=== PATIENT | male | born 1985 | race Two or more races ===

== ENCOUNTER 2024-05-09 00:05 | Inpatient (IN) | payer MEDICAID ==
[~2024-05-09] VITALS: Ht 154.9 cm; Wt 70.4 kg
[2024-05-09] MEDS: LORazepam 2 MG/ML VIAL IM ONE (00:51)
[2024-05-09] MEDS: DiphenhydrAMINE HCL 50 MG/ML VIAL IM ONE (00:51)
[2024-05-09] MEDS: HALOPERIDOL LACTATE 5 MG/ML VIAL IM ONE (00:53)
[2024-05-09 01:15] LABS: BASOPHILS % (AUTO) 0.6 % (0.0-2.0); EOSINOPHILS % (AUTO) 0.4 % (1.0-6.0); HEMATOCRIT 46.7 % (41-53); LYMPHOCYTES % (AUTO) 9.5 % (22.0-44.0); MEAN CORPUSCULAR HEMOGLOBIN 30.2 pg (26.0-34.0); MEAN CORPUSCULAR HGB CONC 34.2 G/dL (31.0-37.0); MEAN CORPUSCULAR VOLUME 88 fL (80-100); MONOCYTES # (AUTO) 0.6 K/uL (0.1-1.0); MONOCYTES % (AUTO) 6.1 % (2.0-9.0); NEUTROPHILS # (AUTO) 8.6 K/uL (1.8-7.7); NEUTROPHILS % (AUTO) 83.4 % (40.0-70.0); PLATELET COUNT (AUTO) 292 K/uL (150-450); RED BLOOD CELL COUNT(AUTO) 5.29 MIL/uL (4.50-5.90); WHITE BLOOD COUNT (AUTO) 10.4 K/uL (4.5-11.0)
[2024-05-09 01:27] LABS: COVID AG,FIA SOURCE NASAL SWAB
[2024-05-09 01:38] LABS: ANION GAP 9 mmol/L (8-16); CALCIUM, TOTAL 9.3 mg/dL (8.8-10.5); CARBON DIOXIDE 26 mmol/L (22-29); CHLORIDE 106 mmol/L (98-107); CREATININE 0.84 mg/dL (0.60-1.30); GLOMERULAR FILTR. RATE CALC > 60 mL/min (>60); GLUCOSE,RANDOM 164 mg/dL (70-110); POTASSIUM 3.4 mmol/L (3.5-5.1); SODIUM SERUM 141 mmol/L (136-145); UREA NITROGEN, BLOOD 17 mg/dL (7-18)
[2024-05-09 01:42] LABS: ALCOHOL, BLOOD (SERUM) < 3 mg/dL (0-10)
[2024-05-09 01:53] LABS: SARS-COV2 (COVID) ANTIGEN,FIA Negative (Negative)
[2024-05-09] MEDS: POTASSIUM CHLORIDE 20 MEQ ER TABLET PO ONE (09:51)
[2024-05-09 10:22] LABS: PH,URINE DRUG SCREEN 5.5 (5.0-8.0)
[2024-05-09 10:30] LABS: ALCOHOL, URINE DRUG SCREEN NEGATIVE (NEGATIVE); AMPHET/METH SCREEN,URINE NEGATIVE (NEGATIVE); BARBITURATE SCREEN, URINE NEGATIVE (NEGATIVE); BENZODIAZEPINES SCREEN,URINE NEGATIVE (NEGATIVE); CANNABINOID SCREEN,URINE NEGATIVE (NEGATIVE); COCAINE SCREEN,URINE NEGATIVE (NEGATIVE); METHADONE SCREEN, URINE NEGATIVE (NEGATIVE); OPIATE SCREEN,URINE NEGATIVE (NEGATIVE); PHENCYCLIDINE SCREEN,URINE NEGATIVE (NEGATIVE)
[2024-05-09] MEDS ORDERED: LORazepam 2 MG TABLET PO PRN (11:15)
[2024-05-09] MEDS ORDERED: PROMETHAZINE HCL 25 MG TABLET PO PRN (11:15)
[2024-05-09] MEDS ORDERED: GuaiFENesin/D-METHORPHAN [SUGAR-FREE] 200-20MG/10 ML SYRUP UDCUP PO PRN (11:15)
[2024-05-09] MEDS ORDERED: LOPERAMIDE HCL 2 MG CAPSULE PO PRN (11:15)
[2024-05-09] MEDS ORDERED: TUBERCULIN, PURIFIED PROTEIN DERIVATIVE 5 TU/0.1 ML SYRINGE ID ONE (11:15)
[2024-05-09] MEDS ORDERED: MAGNESIUM HYDROXIDE SUSPENSION 30 ML UDCUP PO PRN (11:15)
[2024-05-09] MEDS ORDERED: ZOLPIDEM TARTRATE 10 MG TABLET PO PRN (11:15)
[2024-05-09] MEDS ORDERED: QUEtiapine FUMARATE 100 MG TABLET PO PRN (11:15)
[2024-05-09] MEDS ORDERED: MAG HYDROX/ALUMINUM HYD/SIMETH ES 30 ML SUSPENSION UDCUP PO PRN (11:15)
[2024-05-09] MEDS ORDERED: ACETAMINOPHEN 325 MG TABLET PO PRN (11:15)
[2024-05-09 15:23] VITALS: BP 130/80; PULSE 98; RESP 16; TEMP 97.5; O2SAT 98
[2024-05-09] MEDS ORDERED: THIAMINE 100 MG TABLET PO SCH (17:00)
[2024-05-09] MEDS ORDERED: INFLUENZA VIRUS VACCINE TVS (6MO+) 2024-25/PF 45 MCG/0.5 ML SYRINGE IM. ONE (17:00)
[2024-05-09 20:51] VITALS: RESP 18; TEMP 97.7
[2024-05-09] MEDS ORDERED: MIRTAZAPINE 15 MG TABLET PO SCH (21:00)
[2024-05-09] MEDS ORDERED: MELATONIN 5 MG TABLET PO SCH (21:00)
[2024-05-09] MEDS: MELATONIN 5 MG TABLET PO SCH (21:04)
[2024-05-09] MEDS: MIRTAZAPINE 15 MG TABLET PO SCH (21:04)
[2024-05-10] MEDS: FOLIC ACID 1 MG TABLET PO SCH (08:32)
[2024-05-10] MEDS: THIAMINE 100 MG TABLET PO SCH (08:33)
[2024-05-10] MEDS: MULTIVITAMINS WITH MINERALS, THERAPEUTIC TABLET PO SCH (08:33)
[2024-05-10 08:59] VITALS: BP 119/66; PULSE 88; RESP 18; TEMP 97.9; O2SAT 98
[2024-05-10] MEDS ORDERED: TUBERCULIN, PURIFIED PROTEIN DERIVATIVE 5 TU/0.1 ML SYRINGE ID ONE ×2 (09:00)
[2024-05-10] MEDS ORDERED: FOLIC ACID 1 MG TABLET PO SCH (09:00)
[2024-05-10 10:20] LABS: CHOL/HDL RATIO 3.4 (4.2-7.3); FREE T4 (FREE THYROXINE) 1.29 ng/dL (0.76-1.46); POTASSIUM 3.5 mmol/L (3.5-5.1)
[2024-05-10 10:23] LABS: HEMOGLOBIN A1C 5.4 % (3.8-5.6)
[2024-05-10 14:10] LABS: THYROID STIMULATING HORMONE 1.21 uIU/mL (0.36-3.74)
[2024-05-10] MEDS ORDERED: MIRT-89 PO (17:18)
[2024-05-10] MEDS ORDERED: MELA5TAB40 PO (17:18)
[2024-05-10 20:50] VITALS: BP 119/82; PULSE 90; RESP 18; TEMP 97.4; O2SAT 100
[2024-05-11 08:05] VITALS: BP 117/79; PULSE 91; RESP 18; TEMP 98.1; O2SAT 100
[2024-05-11] MEDS: HydrOXYzine PAMOATE 50 MG CAPSULE PO PRN (09:10)
== END 2024-05-11 13:30 | disposition home or self-care (01) | DRG 751 ==
LOC: EMS 00:05 → 3EI 16:04
PROVIDERS: ADMIT Psychiatry & Neurology Psychiatry; ATTEND Psychiatry & Neurology Psychiatry
PROC: GZ58ZZZ Individual Psychotherapy, Cognitive-Behavioral (ICD-10-PCS; 2024-05-09)
PROC: GZHZZZZ Group Psychotherapy (ICD-10-PCS; principal; 2024-05-11)
PROC: GZ56ZZZ Individual Psychotherapy, Supportive (ICD-10-PCS; 2024-05-11)
DX: F33.2 Major depressive disorder, recurrent severe without psychotic features (principal); R45.851 Suicidal ideations; E11.9 Type 2 diabetes mellitus without complications; E87.6 Hypokalemia; Z20.822 Contact with and (suspected) exposure to COVID-19; Z59.00 Homelessness unspecified; F17.210 Nicotine dependence, cigarettes, uncomplicated
CPT/HCPCS: 80048; 80061; 80307; 83036; 84132; 84439; 84443; 85025; 86592; 96372; 99285; G0480; J1200; J1630; J2060